=== PATIENT | female | born 1995 | race Caucasian/White ===

== ENCOUNTER 2022-01-12 16:00 | Outpatient (CLI) | payer MEDICARE, OTHER ==
[2022-01-12 17:00] LABS: Creatinine,Urine Random 151.9 mg/dL; Protein/Creatinine Ratio,Urine 0.072
[2022-01-12 17:05] LABS: Glucose,Urine (UA) Negative (Negative); Ketones,Urine Trace (Negative); Protein,Urine Trace (Negative)
[2022-01-12 18:18] VITALS: BP 137/83; PULSE 111; RESP 16; TEMP 97.5
--- NOTE | 2022-01-24 08:55 | P.MSEPDOC ---
Presenting Problems - Arrival Data Date of Arrival on Unit: 01/12/22 Time of Arrival on Unit: 16:00 Mode of Transport: Ambulatory - Complaint OB-Reason for Admission/Chief Complaint: PIH Medical History - Information : 2 Para: 0 Abortions: Spontaneous or Elective: 1 Number of Living Children: 0 - Gestational Age Gestational Age by CANDIDA (wks/days): 24 Weeks and 6 Days - History Complications: Multiple Review of Systems - Review of Systems Constitutional: No problems Breast: No problems ENT: No problems Cardiovascular: No problems Respiratory: No problems Gastrointestinal: No problems Genitourinary: No problems Musculoskeletal: No problems Neurological: No problems Skin: No problems Vital Signs - Temperature Temperature: 97.5 F Temperature Source: Temporal Artery Scan - Pulse Right Sitting Brachial Pulse Rate: 111 Pulse Assessment Method: Automatic Cuff - Respirations Respiratory Rate: 16 Oxygen Delivery Method: Room Air O2 Sat by Pulse Oximetry: 98 - Blood Pressure Right Arm Sitting Blood Pressure: 137/83 Blood Pressure Mean: 101 Blood Pressure Source: Automatic Cuff Medical Screen Scoring - Assessment - Baby A Baseline FHR: 140 Heart Rate - NICHD Category: Category I (Normal) - Assessment - Baby B Baseline FHR: 130 Heart Rate - NICHD Category: Category I (Normal) Physician Notification - Physician Notified Physician Notified Date: 01/12/22 Physician Notified Time: 16:36 Physician: Swetha Llamas Order Received: Yes - Notification Comment Comment: labs then discharge at 1800 Maternal Triage Index - Maternal Triage Index Presenting for scheduled procedure w/no complaint: No - Stat/Priority 1 Stat Priority 1: No - Urgent/Priority 2 Urgent Priority 2: No - Prompt/Priority 3 Prompt Priority 3: No - Non-Urgent/Priority 4 Non-Urgent Priority 4: Yes Criteria Met for Priority 4: less than 25 weeks, BP concerns Disposition - Disposition OB Disposition: Discharge to home Discharge Date: 01/12/22 Discharge Time: 18:00 I agree with the RN Medical Screening Exam: No Physician's MSE Comment: inadequate documentation. OBIX shows multiple normal BPs. UA with trace protien, normal prot/Cr ratio Case reviewed; plan agreed upon as documented in EMR&OBIX.: Yes Diagnosis: elevated BP in
== END 2022-01-12 18:00 | disposition home or self-care (01) ==
LOC: FBPOP 16:00
PROVIDERS: ATTEND Obstetrics & Gynecology Obstetrics
DX: O16.2 Unspecified maternal hypertension, second trimester (principal); Z3A.24 24 weeks gestation of pregnancy
CPT/HCPCS: 82570; 84156; 81003; G0463; 99215

== ENCOUNTER 2022-03-15 10:09 | Outpatient (CLI) | payer MEDICARE, OTHER ==
[2022-03-15] MEDS ORDERED: BETAMET ACET-BETAMETH SOD PHOS 6 MG/ML MDV IM SCH (10:15)
[2022-03-15 10:50] VITALS: RESP 14
== END 2022-03-15 10:20 | disposition home or self-care (01) ==
LOC: FBPOP 10:09
PROVIDERS: ATTEND Obstetrics & Gynecology Obstetrics
DX: Z29.13 Encounter for prophylactic Rho(D) immune globulin (principal); Z91.040 Latex allergy status
CPT/HCPCS: 96372; G0463; J0702; 99214

== ENCOUNTER 2022-03-16 10:22 | Outpatient (CLI) | payer MEDICARE, OTHER ==
[2022-03-16] MEDS ORDERED: BETAMET ACET-BETAMETH SOD PHOS 6 MG/ML MDV IM SCH (10:30)
[2022-03-16 11:07] VITALS: BP 121/80; PULSE 104; RESP 18; TEMP 97.8
== END 2022-03-16 11:00 | disposition home or self-care (01) ==
LOC: FBPOP 10:22
PROVIDERS: ATTEND Obstetrics & Gynecology Obstetrics
DX: O26.93 Pregnancy related conditions, unspecified, third trimester (principal); Z91.040 Latex allergy status
CPT/HCPCS: 59025; 96372; J0702

== ENCOUNTER → 2024-05-09 | Outpatient (CLI) | payer OTHER ==
[2024-05-09 15:59] LABS: HCT 44.1 % (37.2-46.3); HGB 14.9 g/dL (12.0-15.0); MCH 29.7 pg (27.0-32.0); MCHC 33.8 g/dL (32.0-37.0); Mean Platelet Volume 10.9 FL (9.5-12.2); NRBC Per 100 WBC 0 X 10*3/uL (0.00-0.01); Platelet Count 248 X 10*3/uL (140-440); RBC 5.01 X 10*6/uL (4.10-5.20); RDW 12.6 % (11.5-14.5); WBC 8.28 X 10*3/uL (4.50-10.00)
[2024-05-09 16:00] LABS: Basophils # (A) 0.05 X 10*3/uL (0.00-0.10); Basophils % (A) 0.6 %; Eosinophils # (A) 0.16 X 10*3/uL (0.04-0.35); Eosinophils % (A) 1.9 %; Lymphocytes % (A) 39.9 %; Monocytes # (A) 0.44 X 10*3/uL (0.20-1.00); Monocytes % (A) 5.3 %; Neutrophils # (A) 4.32 X 10*3/uL (1.80-7.70); Neutrophils % (A) 52.2 %
[2024-05-09 16:22] LABS: BUN/Creat Ratio 17.25 Ratio (12.00-20.00); Blood Urea Nitrogen 13.8 mg/dL (9.0-27.0); Chol/HDL Ratio 3.66 Ratio; Glucose 96 mg/dL (70-110); LDL Cholesterol,Calculated 112.5 mg/dL (0.0-131.0)
[2024-05-09 16:23] LABS: ALT 10 U/L (8-44); AST 18 U/L (13-35); Albumin 4.3 g/dL (3.8-4.9); Albumin/Globulin Ratio 1.72 Ratio (1.60-3.17); Alkaline Phosphatase 63 U/L (41-126); Carbon Dioxide 23.6 mmol/L (21.6-31.8); Chloride 103 mmol/L (96-109); Globulin 2.5 g/dL (1.6-3.3); Sodium 137 mmol/L (135-145); Total Bilirubin 0.4 mg/dL (0.3-1.2); Total Protein 6.8 g/dL (6.2-8.2)
== END | disposition home or self-care (01) ==
LOC: LABWHC1 08:56
PROVIDERS: ATTEND Internal Medicine
DX: Z00.00 Encounter for general adult medical examination without abnormal findings (principal)
CPT/HCPCS: 36415; 80053; 80061; 84443; 85025

== ENCOUNTER → 2024-08-01 | Outpatient (CLI) | payer OTHER ==
--- NOTE | 2024-08-01 08:17 | US ---
EXAMINATION TYPE: US abdomen limited DATE OF EXAM: 08/01/2024 COMPARISON: NONE CLINICAL INDICATION: Female, 28 years old with history of R10.11 RIGHT UPPER QUADRANT PAIN; RUQ pain vomiting x 3 months TECHNIQUE: Grayscale and color Doppler imaging of the right upper quadrant was performed. FINDINGS: EXAM MEASUREMENTS: Liver Length: 12.5 cm Gallbladder Wall: 0.2 cm CBD: 0.4 cm Right Kidney: 10.8x3.9x5.3 cm CRUSHER DRY GROUND MICA NOTES: Pancreas: Tail obscured by overlying bowel gas Liver: wnl Gallbladder: wnl Evidence for sonographic Hood's sign: No CBD: wnl Right Kidney: No hydronephrosis or masses seen exam slightly limited by bowel gas and body habitus IMPRESSION: No discrete abnormality appreciated. [facility], , 08/01/2024 8:14 AM
== END | disposition home or self-care (01) ==
LOC: RADUSWWP 07:13
PROVIDERS: ATTEND Internal Medicine
DX: R10.11 Right upper quadrant pain (principal)
CPT/HCPCS: 76705